=== PATIENT | female | born 1985 | race Caucasian/White ===

== ENCOUNTER → 2017-01-24 | Outpatient (CLI) | payer BC ==
[~2017-01-24] MED LIST: AMOX500C5 PO; PRED20TA PO
[2017-01-24 18:30] VITALS: BP 112/69
--- NOTE | 2017-01-24 18:30 | Urgent Care T Sheet Gen (E) ---
Intake General Temperature (Fahrenheit): 102.2 Pulse: 120 Blood Pressure Systolic: 112 Blood Pressure Diastolic: 69 Respirations: 22 SPO2: 98 Description of Symptoms Patient presents with illness since yesterday morning. Started as red, swollen painful throat, R side worse than L. Fever up to 103. Stayed home today and slept most of the day. Also been having headaches for which she takes Excedrin. Approx 30 minutes ago, she noticed intermittent L hand numbness which affects entire hand. No weakness. Respiratory Constitutional Symptoms: Fever Malaise EENTM: Throat pain Throat swelling Respiratory: No symptoms reported Cardiovascular: No symptoms reported Neurological: NumbnessNo Weakness All Other Systems Reviewed Remaining Systems: All other systems reviewed with negative findings Physical Exam Physical Exam General Appearance: WD/WN No apparent distress Eyes, Ears, Nose, Throat Ex: TMs normal Pharyngeal erythema Tonsillar exudate Neck Exam: Supple Lymphadenopathy (anterior cervical) Respiratory Exam: Lungs clear Normal breath sounds Cardiovascular Exam: Regular rate, rhythm Progress/Orders Lab Results Labs Results: Rapid Strep (positive) Departure Urgent Care Impression Impression: Primary Impression: Strep pharyngitis Departure Disposition: 01 HOME OR SELF-CARE Condition: Stable Referrals: JW COLE MD (PCP) Additional Instructions: I have started the patient on Amoxicillin for treatment Prednisone for inflammation. No NSAIDs while on Prednisone. DC Excedrin while on Prednisone. Take Tylenol as needed for pain Rest. Fluids Return as needed Patient understands DC instructions. All questions were answered. Scripts Prednisone 20 Mg [id number] Mg PO DAILY #6 TAB Prov:EARNESTINE ESTEVEZ 01/24/17 Amoxicillin (Amoxil)500 Mg [id number] Mg PO BID Infection #20 CAP Ref 0 Prov:EARNESTINE ESTEVEZ 01/24/17 End of report . EARNESTINE ESTEVEZ January 24, 2017 18:30
== END ==
LOC: MHUC 18:04
PROVIDERS: ATTEND Physician Assistant
DX: J02.0 Streptococcal pharyngitis (principal)
CPT/HCPCS: 87880; 99213